=== PATIENT | female | born 1985 | race Caucasian/White ===

== ENCOUNTER 2023-11-11 13:00 | Outpatient (RCR) | payer BC | END 2023-11-14 | disposition home or self-care (01) | LOC: WSPT | DX: I89.0 Lymphedema, not elsewhere classified (principal) ==

== ENCOUNTER 2023-12-07 13:00 | Outpatient (RCR) | payer BC | END 2023-12-15 | disposition home or self-care (01) | LOC: WSPT | DX: I89.0 Lymphedema, not elsewhere classified (principal) ==

== ENCOUNTER 2023-12-30 13:00 | Outpatient (RCR) | payer BC | END 2024-01-13 | disposition home or self-care (01) | LOC: WSPT | DX: I89.0 Lymphedema, not elsewhere classified (principal) ==

== ENCOUNTER 2024-02-07 13:30 | Outpatient (RCR) | payer BC | END 2024-02-13 | disposition home or self-care (01) | LOC: WSPT | DX: I89.0 Lymphedema, not elsewhere classified (principal) ==

== ENCOUNTER 2024-04-07 09:00 | Outpatient (RCR) | payer BC | END 2024-04-14 | LOC: WSPT | DX: I89.0 Lymphedema, not elsewhere classified (principal) ==